=== PATIENT | male | born 1955 | race Caucasian/White ===

== ENCOUNTER 2019-01-29 07:17 | Day surgery (SDC) | payer MEDICARE, BC ==
[~2019-01-29 07:17] MED LIST: CEFAZOLIN 1G VIAL IVP ONE; WATER STERILE FOR INJECTION 20 ML VIAL MC ONE
[2019-01-29] MEDS ORDERED: MORPHINE SULFATE PF 10MG/10ML VIAL IV ONE (07:18)
[2019-01-29] MEDS ORDERED: MIDAZOLAM HCL 2MG/2ML VIAL IV ONE (07:18)
[2019-01-29] MEDS ORDERED: EPHEDRINE SULFATE 50 MG/ML ML IV ONE (07:18)
[2019-01-29] MEDS ORDERED: PROPOFOL 10 MG/ML VIAL IV ONE (07:18)
[2019-01-29] MEDS ORDERED: DEXAMETHASONE 4 MG/ML 1ML VIAL IVP ONE (07:18)
[2019-01-29] MEDS ORDERED: LIDOCAINE 2% MDV (20MG/ML) 20ML VIAL IV ONE (07:18)
[2019-01-29] MEDS ORDERED: BUPIVACAINE LIPOSOME/PF 133MG/10ML VIAL IV ONE (07:18)
[2019-01-29] MEDS ORDERED: KETAMINE HCL 100MG/1ML VIAL INJ ONE (07:18)
[2019-01-29] MEDS ORDERED: GLYCOPYRROLATE 0.2 MG/ML ML IV ONE (07:18)
[2019-01-29] MEDS ORDERED: SEVOFLURANE 250 ML INH ONE (07:18)
[2019-01-29] MEDS ORDERED: RINGERS SOLUTION,LACTATED 1,000 ML IV ONE (11:35)
[2019-01-29] MEDS ORDERED: MORPHINE SULFATE 5 MG/ML VIAL IM ONE (12:14)
[2019-01-29] MEDS ORDERED: BUPIVACAINE 0.5% W/EPI MPF 30 ML VIAL SQ ONE (12:14)
[2019-01-29] MEDS ORDERED: KETOROLAC 30 MG/ML VIAL IM ONE (13:28)
[2019-01-29] MEDS ORDERED: KETOROLAC 30 MG/ML VIAL IVP ONE (13:28)
[2019-01-29] MEDS ORDERED: HYDROCODONE/APAP 7.5/325MG TABLET PO ONE (13:28)
--- NOTE | 2019-01-30 08:31 | Operative Note ---
DATE OF SURGERY: 01/29/2019 PREOPERATIVE DIAGNOSIS: Right shoulder impingement. POSTOPERATIVE DIAGNOSES: 1. 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 2. Complex glenohumeral labral tear anteriorly and superiorly. 3. Synovitis right shoulder. 4. Adhesive capsulitis right shoulder. 5. Profound right shoulder external impingement. 6. Right shoulder arthrosis distal clavicle. OPERATION: 1. Repair of a chronically torn right shoulder rotator cuff tear. 2. Right shoulder arthroscopy with intraarticular debridement with complete synovectomy. 3. Right shoulder open acromioplasty, CA ligament resection, and subacromial bursectomy. 4. Right shoulder distal clavicle resection. 5. Manipulation of right shoulder under anesthesia. STAFF SURGEON: Gigi Yi MD ANESTHESIA: General. PREPARATION: Chloraprep. INDIVIDUAL CONSIDERATIONS: None. PROCEDURE: The patient was taken to the operating room, placed supine on the operating room table. He had a successful induction with general anesthetic. He was placed in a semi-seated beach chair position. His right arm and shoulder were prepped and draped in the usual fashion. Examination under anesthesia showed fairly impressive adhesive capsulitis. I felt resistance to motion at about 80 degrees of abduction. I was able to easily manipulate him to full abduction and rotation. After doing this, he was then prepped and draped in the usual fashion. The patient had a posterior portal identified for arthroscopy. Skin was infiltrated with 0.5% Marcaine with epinephrine prior. An 18-gauge spinal needle was placed in the joint, and the joint was inflated with normal saline. An anterior accessory portal was then made just inferior to the intact long head of the biceps tendon in a retrograde fashion with a Wissinger vincent, and the joint was irrigated out. The patient had obvious tear of the supraspinatus. There was fraying of the labrum superiorly and anteriorly. This was debrided with a shaver. There was synovitis present anteriorly and superiorly. This was all debrided with a shaver. The inferior pouch looked good. Glenohumeral joint showed some grade 3 changes, especially centrally and on the head and in the glenoid. Subscap tendon was normal. Long head was normal. After irrigation, portals were closed with romain. The patient had an anterior approach to the subacromial space and distal clavicle. Skin was again infiltrated with 0.5% Marcaine with epinephrine prior. Sharp dissection carried down through skin and subcutaneous tissue. Small veins were coagulated with a Bovie. An anterior deltoid interval was developed. Care was taken not to split the deltoid more than about 4 cm distal to the anterior tip of the acromion to prevent injury to the axillary nerve. Once in the subacromial space, there was a large smith of fluid consistent with a tear. There were spurs at the AC joint and spurs anteriorly on the acromion. The CA ligament was resected with a Bovie. The deltoid was then detached subperiosteally off the anterior aspect of the acromion and over the top of the degenerated distal clavicle. CA ligament again was resected. Distal clavicle was resected using an oscillating saw taking about 8 mm. An anterior acromioplasty was performed taking mainly spur about a centimeter and tapering towards posteromedially to include the spurs at the AC joint. The undersurface was smoothed with a rasp. A very thick bursa was debrided out. He basically had about a 1.5 cm retracted tear of the supraspinatus tendon. It was easily mobilized and debrided back to bleeding tendon. I made a small slightly curved trough and then brought the tendon back into the tuberosity with multiple retention sutures of #1 Ethibond going through the base of the trough and then tying down distally affecting near anatomic repair. I put the shoulder through a full range of motion to ensure no further impingement. After irrigation, the deltoid was reattached to the remaining acromion with multiple interrupted #2 Vicryl going directly through the bony acromion. The periosteal cuff of the distal clavicle was closed with running #2 Vicryl. Anterior deltoid interval was closed with running #1 Vicryl. Subcu was closed with 2-0 plus Vicryl and skin was closed with romain. An 18-gauge spinal needle was placed into the subacromial space and injected with 10 mL of 0.5% Marcaine with epinephrine along with 10 mg of morphine. A sterile bulky compressive dressing and sling were applied. The patient tolerated the procedure well. Needle and sponge counts were correct. Estimated blood loss was minimal. He was taken back to recovery in good condition. There were no complications. [facility] CENTERAlc[facility]
== END 2019-01-29 14:00 | disposition home or self-care (01) ==
LOC: SUR 07:17
PROVIDERS: ATTEND Orthopaedic Surgery
DX: S43.431A Superior glenoid labrum lesion of right shoulder, initial encounter (principal); M75.101 Unspecified rotator cuff tear or rupture of right shoulder, not specified as traumatic; M75.01 Adhesive capsulitis of right shoulder; M19.011 Primary osteoarthritis, right shoulder; M65.811 Other synovitis and tenosynovitis, right shoulder
CPT/HCPCS: 29821; 23412; 23130; 23120; 23700; 01610; 64415; 76942; C9290; J3490; J0690; J7120

== ENCOUNTER 2019-08-06 06:47 | Day surgery (SDC) | payer MEDICARE, BC ==
[~2019-08-06 06:47] MED LIST changes: +ACETAMINOPHEN 1,000 MG/100 ML BTL IVPB ONE; -CEFAZOLIN 1G VIAL IVP ONE; +CEFAZOLIN 2 Gram 2 GM/50 ML BAG IVPB ONE; +FAMOTIDINE 20MG TABLET PO ONE; +METOCLOPRAMIDE 10 MG TABLET PO ONE; +SCOPOLAMINE 1 PATCH TDSY TD ONE; -WATER STERILE FOR INJECTION 20 ML VIAL MC ONE
[2019-08-06] MEDS ORDERED: LIDOCAINE 2% MDV (20MG/ML) 20ML VIAL IV ONE (06:48)
[2019-08-06] MEDS ORDERED: MIDAZOLAM HCL 2MG/2ML VIAL IV ONE (06:48)
[2019-08-06] MEDS ORDERED: FENTANYL PF 100MCG/2ML VIAL IV ONE (06:48)
[2019-08-06] MEDS ORDERED: PROPOFOL 10 MG/ML VIAL IV ONE (06:48)
[2019-08-06] MEDS ORDERED: BUPIVACAINE 0.25% MPF 30ML VIAL IVP ONE (06:48)
[2019-08-06] MEDS ORDERED: DEXAMETHASONE 4 MG/ML 1ML VIAL IVP ONE (06:48)
[2019-08-06] MEDS ORDERED: ONDANSETRON HCL IV 4 MG/2 ML VIAL IVP ONE (06:48)
[2019-08-06] MEDS ORDERED: EPHEDRINE SULFATE 50 MG/ML ML IV ONE (06:48)
[2019-08-06] MEDS ORDERED: SEVOFLURANE 250 ML INH ONE (06:48)
[2019-08-06] MEDS ORDERED: BUPIVACAINE LIPOSOME/PF 133MG/10ML VIAL IV ONE (06:48)
[2019-08-06] MEDS ORDERED: RINGERS SOLUTION,LACTATED 1,000 ML IV ONE (07:30)
[2019-08-06] MEDS ORDERED: METHYLPREDNISOLONE 40MG/VIAL IU ONE ×2 (09:57→10:21)
[2019-08-06] MEDS ORDERED: MORPHINE SULFATE 10MG/1ML **1ML VIAL IU ONE ×2 (09:57→10:21)
[2019-08-06] MEDS ORDERED: BUPIVACAINE 0.5% W/EPI MPF 30 ML VIAL SQ ONE (09:57)
--- NOTE | 2019-08-07 09:40 | Operative Note ---
DATE OF SURGERY: 08/06/2019 PREOPERATIVE DIAGNOSIS: Tear of the rotator cuff on the right. POSTOPERATIVE DIAGNOSES: 1. Diffuse synovitis right shoulder. 2. 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 3. Adhesive bursitis, right shoulder. OPERATION: 1. Right shoulder arthroscopy with synovectomy. 2. Right shoulder subacromial bursectomy, open. STAFF SURGEON: Gigi Yi MD ANESTHESIA: General. PREPARATION: Chloraprep. INDIVIDUAL CONSIDERATIONS: None. PROCEDURE: The patient was taken to the operating room, placed supine on the operating room table. He had a successful induction with a general anesthetic. He was then placed in a semi-seated beach chair position. His right arm was then prepped and draped in the usual fashion. I moved his shoulder and he had decent range of motion. A posterior portal was identified for arthroscopy. Skin was infiltrated with 0.5% Marcaine with epinephrine. An 18-gauge spinal needle was placed in the joint, and the joint was inflated with a 60-mL syringe saline. A stab wound was made, and a blunt-tipped trocar for the scope was placed in the joint. The joint was inflated with normal saline. The patient had diffuse synovitis which was debrided with a shaver. The long head was intact. The glenohumeral joint had grade 3 change throughout some of it which was debrided previously. The remaining unstable areas were debrided. Subscap was normal. Rotator cuff underneath looked contused but I did not see any large holes. There had been a previous repair measuring 2 cm. This appeared intact underneath. After irrigation, portals were closed with romain. The patient had an anterior approach to the subacromial space through the previous wound. I used the distal 2/3 of the wound. Skin was infiltrated with 0.5% Marcaine with epinephrine prior. Sharp dissection carried down through skin and subcutaneous tissues. Small veins were coagulated with a Bovie. An anterior deltoid interval was developed, and I basically used the previous interval. Sharp dissection came to it and then blunt dissection to split the deltoid from the acromion to about 4-5 cm distal to avoid injury to the axillary nerve. Once in the subacromial space, it was just completely scarred in. I was able to fee this up with finger dissection, resected the scarred bursa which was rather extensive. I now had a good look at the rotator cuff repair, which was basically intact. I put the shoulder through a full range of motion. There was no significant impingement because a previous acromioplasty, distal clavicle, and CA ligament had already been done. After irrigation, the anterior deltoid interval was closed with a running #1 Vicryl. Subcu was closed with 2-0 plus Vicryl and skin was closed with romain. An 18-gauge spinal needle was placed directly into the joint. The joint was injected with 40 mg of Depo-Medrol along with 5 mL of Marcaine with epinephrine and also an 18-gauge spinal needle was placed into the subacromial space and 10 mL of 0.5% Marcaine with epinephrine along with 10 mg of morphine and 40 mg of Depo-Medrol were injected into the subacromial space. A sterile bulky compressive dressing and sling were applied. The patient tolerated the procedure well. Needle and sponge counts were correct. Estimated blood loss was minimal. He was taken back to recovery in good condition. There were no complications. [facility]
== END 2019-08-06 11:35 | disposition home or self-care (01) ==
LOC: SUR 06:47
PROVIDERS: ATTEND Orthopaedic Surgery
DX: M65.811 Other synovitis and tenosynovitis, right shoulder (principal); M94.211 Chondromalacia, right shoulder; M75.01 Adhesive capsulitis of right shoulder; I10 Essential (primary) hypertension; K21.9 Gastro-esophageal reflux disease without esophagitis
CPT/HCPCS: 76942; C9290; J1030; J2270; J2405; J7120